=== PATIENT | female | born 1985 | race Caucasian/White ===

== ENCOUNTER 2017-03-28 18:29 | Emergency (ER) | payer SELFPAY ==
[2017-03-28 19:03] VITALS: BP 115/59
[2017-03-28] MEDS ORDERED: CLINDAMYCIN HCL 150 MG CAPSULE PO ONE (20:10)
[2017-03-28] MEDS ORDERED: OXYCODONE-ACETAMINOPHEN 5-325 MG TABLET PO ONE (20:10)
[2017-03-28] MEDS ORDERED: HYDROCODONE/ACETAMINOPHEN 5-325 MG 6 TAB/DSPK PO PRN (20:11)
--- NOTE | 2017-03-28 20:14 | ER Document Report ---
HPI - HPI Patient complains to provider of: facial swelling, dental pain Pain Level: 5 Context: Patient is a 32-year-old female that comes emergency department for chief complaint of pain in her left face and jaw with swelling, she states she began to have pain in her teeth last night and when she awoke she noticed the swelling. She has never had this before reportedly. She has known history of dental fractures on the left lower side. She denies any fever, sore throat, neck pain. She has had a hysterectomy. - DERM Skin Color: Normal Past Medical History - General Information source: Patient - Social History Smoking Status: Never Smoker Frequency of alcohol use: None Drug Abuse: None Lives with: Family Family History: Reviewed & Not Pertinent Patient has suicidal ideation: No Patient has homicidal ideation: No - Medical History Medical History: Negative Renal/ Medical History: Denies: Hx Peritoneal Dialysis Past Surgical History: Reports: Hx Cholecystectomy, Hx Hysterectomy - Immunizations Immunizations up to date: Yes Hx Diphtheria, Pertussis, Tetanus Vaccination: No Vertical Provider Document - CONSTITUTIONAL General Appearance: WD/WN, Mild Distress - Patient appears to be in some pain but is not in severe distress - INFECTION CONTROL TRAVEL OUTSIDE OF THE [place] IN LAST 30 DAYS: No - HEENT HEENT: Atraumatic, Normocephalic. negative: Normal ENT Exam - There is soft tissue swelling over the left lower jaw, there is no lymphadenopathy or extension into the submandibular tissues Mouth Diagram: 1 - Dental decay with fractures, teeth behind these are missing; gingival redness but no drainable abscess, normal oral exam otherwise - NECK Neck: Normal Inspection - RESPIRATORY Respiratory: Breath Sounds Normal, No Respiratory Distress O2 Sat by Pulse Oximetry: 100 - CARDIOVASCULAR Cardiovascular: Regular Rate, Regular Rhythm - GI/ABDOMEN Gastrointestinal: Abdomen Soft, Abdomen Non-Tender Course - Re-evaluation Re-evalutation: Examination consistent with dental infection with soft tissue swelling outside the local muscle, no evidence of Jann's angina, no airway compromise, no drainable abscess noted. Treating with clindamycin, discussed follow-up and return precautions, provided with copy of local discount dental referral, patient states understanding and agreement. - Vital Signs Vital signs: Temp Pulse Resp BP Pulse Ox 98.8 F 98 16 115/59 L 100 03/28/17 19:01 03/28/17 19:01 03/28/17 19:01 03/28/17 19:01 03/28/17 19:01 Discharge - Discharge Clinical Impression: Dental infection, Pain, dental Condition: Stable Disposition: HOME, SELF-CARE Additional Instructions: Take the antibiotics as prescribed to completion. Take pain medication if needed. Follow-up with the dentist for additional management or this will continue to happen. Return to the emergency department for any concerning or worsening symptoms. Prescriptions: Clindamycin HCl [Cleocin 150 mg Capsule] 150 mg PO Q6 #56 capsule Oxycodone HCl/Acetaminophen [Percocet 5-325 mg Tablet] 1 - 2 tab PO Q4H PRN #15 tablet PRN Reason: Forms: Return to Work
== END 2017-03-28 20:50 | disposition home or self-care (01) ==
LOC: ER 18:29
DX: K04.7 Periapical abscess without sinus (principal); K02.9 Dental caries, unspecified; K08.89 Other specified disorders of teeth and supporting structures
CPT/HCPCS: 99283